=== PATIENT | female | born 1965 | race Caucasian/White ===

== ENCOUNTER 2020-11-01 10:01 | Outpatient (CLI) | payer BC, SELFPAY ==
--- NOTE | 2020-11-01 10:10 | MR_ITS ---
WS: [id number] MRI RIGHT KNEE HISTORY: RT KNEE Pain; hx OF TORN MENISCUS RT KNEE, history of prior meniscal repair. COMPARISON: None available. Anterior cruciate ligament: Intact. Posterior cruciate ligament: Intact. Medial collateral ligament: MCL is being displaced from the joint line by an extruded meniscus, osteo phytes and inflammatory changes. No tear is identified. Posterior lateral corner structures: Displacement of the fibular collateral ligament from the joint l ine by osteophytes and degenerative changes at the joint line. Medial menisci: Mild intrasubstance degeneration. No tear is identified. There is increased vertical signal through the posterior third of the meniscus but this is only seen on one image therefore canno t confirm this is a tear. There is partial extrusion of the meniscus from the joint line. Lateral meniscus: Significant intrasubstance degeneration. There is fraying along the articular surfa jamshid of the anterior and posterior horns. Smudgy-like area of increased signal along the free edge of the anterior horn. There is also some increased fluid surrounding the posterior horn. Extensor mechanism: Distal quadriceps tendon and patellar tendons are intact. Fluid and soft tissue: Moderate-sized joint effusion in the suprapatellar bursa. There is increased s oft tissue edema. Increase fluid in the infrapatellar fat pad and surrounding the femoral condyles. T here is a septated cystic mass near the fibular head inseparable from the popliteus tendon and muscle extending over length of 2.6 cm x 1.2 cm. Osseous and articular structures: Patellofemoral compartment: Mild narrowing of patellofemoral joint space. Complete loss of cartilage over the patellar surfaces. Patellar osteophytes. There is a large lobulated cyst filling a large por tion of the central patella. Medial compartment: Moderate joint space narrowing of the medial compartment with large marginal oste ophytes, complete loss of cartilage. Meniscus is extruded. Marrow edema along the femoral condyle and tibial plateau. Lateral compartment: Mild narrowing of the lateral compartment. There is significant fissuring and th inning of cartilage. Osteophytes from the joint line. No fracture or marrow edema. There is a subchon dral cyst near the central tibial plateau. MR/MR knee RT wo con* [id number] IMPRESSION: 1. Moderate medial compartment internal degeneration with loss of cartilage, j oint space narrowing, osteophytes and meniscal extrusion. 2. Mild patellofemoral and lateral compartment changes of osteoarthritis and d erangement with loss of cartilage and joint space and osteophyte formation. 3. Moderate-sized suprapatellar joint effusion with increased edema in the soft tissues. 4. Septated cystic mass near the fibular head and the popliteus tendon suspici ous for a ganglion.
== END 2020-11-01 10:02 | disposition home or self-care (01) ==
PROVIDERS: PCP Nurse Practitioner Family; Visit Provider Nurse Practitioner Family
DX: Z87.828 Personal history of other (healed) physical injury and trauma (principal); M23.8X1 Other internal derangements of right knee; M25.761 Osteophyte, right knee; M25.461 Effusion, right knee; R60.0 Localized edema
CPT/HCPCS: 73721

== ENCOUNTER 2021-07-25 15:29 | Outpatient (CLI) | payer BC, SELFPAY ==
--- NOTE | 2021-07-25 15:53 | XR_ITS ---
WS: [id number] ABDOMEN SERIES ACUTE Supine and upright views of the abdomen with AP or PA chest CLINICAL INFORMATION: ABDOMINAL PAIN, LEFT LOWER QUADRANT COMPARISON: None. FINDINGS: Heart: Normal cardiac silhouette. Lungs: Lungs are clear. No consolidation or pleural fluid. Bowel gas pattern: Dense constipation right colon. Otherwise normal bowel gas pattern. Free air: None. Abnormal calcifications: None. Bones: Postoperative changes lower cervical spine XR/XR acute abdomen series [id number] IMPRESSION: 1. Both lungs are well aerated. No acute pulmonary infiltrates. 2. Prior cholecystectomy. 3. Dense constipation right colon. 4. No other acute findings.
== END 2021-07-25 15:30 | disposition home or self-care (01) ==
PROVIDERS: PCP Nurse Practitioner Family; Visit Provider Clinical Nurse Specialist Adult Health
DX: R10.32 Left lower quadrant pain (principal); K59.00 Constipation, unspecified; Z90.49 Acquired absence of other specified parts of digestive tract
CPT/HCPCS: 74022

== ENCOUNTER 2024-05-02 09:23 | Emergency (ER) | payer BC, SELFPAY ==
[2024-05-02] VITALS (40 sets, daily range): BP systolic 175–189; BP diastolic 107–128; PULSE 66–83; RESP 9–21; TEMP 36.6; O2SAT 94–99; BMI 32.0
--- NOTE | 2024-05-02 10:46 | ECG_ITS ---
[facility] Test Date: 2024-05-02 Pat Name: Jina Hester Department: Room: Gender: Female Hand Presser: : 1965 Requested By: John Alexander Order Number: [id number] Jane MD: Sushil Taylor M.D. Measurements Intervals [place] Rate: 76 P: 50 [place]: 154 QRS: 23 QRSD: 83 T: 26 QT: 375 QTc: 424 Interpretive Statements SINUS RHYTHM No previous ECG available for comparison Electronically Signed On 05-03-2024 14:45:13 CDT by Sushil Taylor M.D. [id number]
--- NOTE | 2024-05-02 10:46 | XRR_ITS ---
PROCEDURE INFORMATION: Exam: XR Chest Exam date and time: 05/02/2024 10:58 AM Age: 58 years old Clinical indication: Pain; Chest pressure; Additional info: Chest pain TECHNIQUE: Imaging protocol: Radiologic exam of the chest. Views: 1 view. COMPARISON: CR XR acute abdomen series [id number] 07/25/2021 4:03 PM FINDINGS: Lungs: Unremarkable. No consolidation. Pleural spaces: Unremarkable. No pleural effusion. No pneumothorax. Heart/Mediastinum: Unremarkable. No cardiomegaly. Bones/joints: Unremarkable. XR/XR chest 1V portable [id number] IMPRESSION: No acute findings.
--- NOTE | 2024-05-02 11:18 | ED_ITS ---
HPI - Back Pain/Injury 2 General: Chief Complaint: Back Pain/Injury Stated Complaint: neck pain, back pain, dizziness Time Seen by Provider: 05/02/24 10:17 Source: patient Mode of arrival: ambulatory Limitations: no limitations History of Present Illness: Patient is had right upper thoracic back pain going on for a few days, worse yesterday. Took Flexeril but had no improvement. Patient reports that exertion does not necessarily change it. Yesterday when walking out to feed the animals she experienced some back pain that increased as well as some lightheadedness. She had an appointment tomorrow with a clinic for just the back pain but with the sudden bout of lightheadedness and a heavy cardiac history on her father side of the family she went to get checked out. Patient reports the pain is never gone. It does wax and wane. Review of Systems 2 General: Reports: 10 or more systems reviewed and unremarkable except in HPI and below PFSH ED 2 PFSH: Medical History Iron deficiency anemia Rectocele Seasonal allergies Surgical History Hx of appendectomy Hx of cholecystectomy Hx of fusion of cervical spine Hx of hysterectomy Hx of right knee surgery Hx of tonsillectomy Family History Other CAD (coronary artery disease) Diabetes Denies family history of Hyperlipidemia Family history of premature coronary artery disease Hypertension Social History (Updated 04/21/23 @ 14:16 by William Porter NP) Quit status (tobacco/nicotine): has quit using Former quit date comment: 20 pack year history Alcohol intake: current Alcohol intake frequency: holidays/special occasions only Physical Exam 2 Const: COMMON NORMALS: no acute distress, average body habitus, patient oriented x3, healthy appearing, alert and well nourished GENERAL APPEARANCE: well kempt and well developed HENMT: COMMON NORMALS: normocephalic, atraumatic, external ears normal and moist oral mucous membranes HEAD & SCALP: normocephalic and atraumatic E XTERNAL EAR: Yes external ears normal Eye: COMMON NORMALS: Equal, round and reactive pupils present, EOMs intact bilaterally and conjunctivae normal CONJUNCTIVA: Yes conjunctivae normal P UPIL: Yes Equal, round and reactive pupils present Neck/C-Spine: COMMON NORMALS: full ROM, no lymphadenopathy and supple Chest: CHEST: Yes Symmetrical chest wall rise and No Surgical scars present (Chest) Resp: COMMON NORMALS: normal respiratory effort, No retractions, No use of accessory muscles and clear to auscultation bilaterally AUSCULTATION: clear to auscultation bilaterally Cardio: COMMON NORMALS: regular rate, regular rhythm, S1 normal heart sound present, S2 normal heart sound present, No gallops present (Cardio), No clicks present (Cardio), No murmurs present (Cardio) and No rub (Cardio) RATE: r egular rate RHYTHM: regular rhythm HEART SOUNDS: S1 normal heart sound present, S2 normal heart sound present and no murmurs PERIPHERAL PULSES: o ther (Radial pulses 2+ and symmetric) GI: COMMON NORMALS: Soft to palpation, non-tender and no masses INSPECTION: No abdominal distension PALPATION: Yes Soft to palpation, No Guarding due to palpation present (GI) and No Rebound tenderness present : COMMON NORMALS: Yes no CVA tenderness BLADDER/KIDNEY EXAM: Yes no CVA tenderness Back/Pelvis: COMMON NORMALS: no CVA tenderness Extremity: COMMON NORMALS: normal to inspection, full ROM, capillary refill normal and no clubbing, cyanosis or edema Neuro: COMMON NORMALS: patient oriented x3 SENSORIUM/ORIENTATION: Yes alert Psych: APPEARANCE: Yes well kempt Skin: COMMON NORMALS: no rashes or lesions noted, no wounds, turgor normal and no jaundice GENERAL SKIN EXAM: no rashes or lesions noted and turgor normal Course 2 Vital Signs: Vital signs: Vital Signs Temperature 98 F 05/02/24 10:21 Pulse Rate 74 05/02/24 13:15 Respiratory Rate 12 05/02/24 13:15 Blood Pressure 175/107 05/02/24 13:00 Pulse Oximetry 97 05/02/24 13:15 Oxygen Delivery Me thod Room Air 05/02/24 10:21 MDM - Back Pain/Injury Medical Decision Making Thankfully cardiac workup and CT PE protocol are negative. Patient was discharged with prescription for Robaxin. Patient to take it twice daily and can take it 3 times daily if needed. Follow-up with primary care. Medical Records I reviewed the patient's medical records. Labs I reviewed the patient's lab results. 05/02/24 11:16 05/02/24 11:16 Radiology Impressions Chest X-Ray 05/02/24 10:46 IMPRESSION: No acute findings. Laboratory Results WBC 5.16 10^3/uL (3.29-11.43) 05/02/24 11:16 RBC 5.20 10^6/uL (3.85-5.65) 05/02/24 11:16 Hgb 14.20 g/dL (11.27-16.99) 05/02/24 11:16 Hct 44.3 % (36-47) 05/02/24 11:16 MCV 85.2 fl (85-98) 05/02/24 11:16 MCH 27.3 pg (27-33) 05/02/24 11:16 MCHC 32.1 g/dL (30-55) 05/02/24 11:16 RDW 14.0 % (12.1-15.1) 05/02/24 11:16 Plt Count 170 10^3/cmm (157-399) 05/02/24 11:16 MPV 9.8 fL (7.4-10.4) 05/02/24 11:16 Neut % (Auto) 57.0 % 05/02/24 11:16 Lymph % (Auto) 30.4 % 05/02/24 11:16 [place] % (Auto) 5.0 % 05/02/24 11:16 Eos % (Auto) 6.4 % 05/02/24 11:16 Baso % (Auto) 1.0 % 05/02/24 11:16 Neut # (Auto) 2.94 10^3/uL (1.8-7.7) 05/02/24 11:16 Lymph # (Auto) 1.6 10^3/uL (0.8-4.8) 05/02/24 11:16 [place] # (Auto) 0.3 10^3/uL (0.2-0.9) 05/02/24 11:16 Eos # (Auto) 0.3 10^3/uL (0.0-0.8) 05/02/24 11:16 Baso # (Auto) 0.1 10^3/uL (0.0-0.1) 05/02/24 11:16 Nucleated RBC % (auto) 0 % 05/02/24 11:16 Nucleated RBCs # 0.0 /100WBC 05/02/24 11:16 D-Dimer 0.89 ug/mLFEU (0-0.59) H 05/02/24 11:16 Sodium 143 mmol/L (136-145) 05/02/24 11:16 Potassium 4.1 mmol/L (3.5-5.1) 05/02/24 11:16 Chloride 107 mmol/L (98-107) 05/02/24 11:16 Carbon Dioxide 23 mmol/L (22-29) 05/02/24 11:16 Anion Gap 17.1 (5-19) 05/02/24 11:16 BUN 16 mg/dL (8-23) 05/02/24 11:16 Creatinine 0.8 mg/dL (0.5-0.9) 05/02/24 11:16 GFR Calculation 73.2 mL/min (90-130) L 05/02/24 11:16 Glucose 104 mg/dL (65-115) 05/02/24 11:16 Calculated Osmolality 297 mOsm/kg (285-295) H 05/02/24 11:16 Calcium 9.5 mg/dL (8.5-10.5) 05/02/24 11:16 Total Bilirubin 0.4 mg/dL (0.15-1.2) 05/02/24 11:16 AST 16 U/L (0-32) 05/02/24 11:16 ALT 18 U/L (0-33) 05/02/24 11:16 Alkaline Phosphatase 89 U/L (35-105) 05/02/24 11:16 Troponin T Baseline < 6 ng/L (0-10) 05/02/24 11:16 Total Protein 7.6 g/dL (6.6-8.7) 05/02/24 11:16 Albumin 4.4 g/dL (3.5-5.2) 05/02/24 11:16 Globulin 3.2 g/dL (1.3-4.6) 05/02/24 11:16 Lipase 29 U/L (13-60) 05/02/24 11:16 XR interpretation done by ED provider, pending radiology final review ED provider radiology interpretation(s): CT PE study read by me. I see no signs of moderate to large pulmonary embolus. Will follow-up study read however patient will go ahead and be discharged. X- ray of the chest was also reviewed by me and was unremarkable. EKG Data EKG 1: I personally reviewed and interpreted this EKG as follows: EKG interpretation date: 05/02/24 EKG interpretation time: 11:06 Prior EKG tracings: not available for review Interpretation: Normal axis, sinus rhythm, rate of [address] QRS or QTc. ST segments unremarkable. EKG 2: I personally reviewed and interpreted this EKG as follows: EKG interpretation date: 05/02/24 EKG interpretation time: 12:29 Prior EKG tracings: available for review Interpretation: Sinus rhythm normal axis rate of [address] QRS or QTc. No ST elevation or depression. Discharge Plan Discharge Patient Disposition: Home Condition: Stable Prescriptions: New methocarbamol 750 mg tablet 750 mg PO TID PRN (Reason: muscle pain) 10 Days Qty: 30 0RF Rx Instructions: Take BID morning and evening, can take a midday dose as needed No Action loratadine [Allergy Relief (loratadine)] 10 mg tablet 10 mg PO DAILY Qty: 90 3RF montelukast [Singulair] 10 mg tablet 10 mg PO DAILY Qty: 90 3RF fluticasone propionate [Allergy Relief (fluticasone)] 50 mcg/actuation spray,suspension 1 spray intranasal DAILY Qty: 16 11RF Rx Instructions: administer into each nostril Discharge Orders: Discharge ED (Routine); Ordered 05/02/24 Ordered By: John Alexander Referrals: William Porter DIRECTOR OF EDUCATION AND TRAINING [Primary Care Provider] - Discharge Diet: Usual diet Discharge Activity: Resume usual activity Patient Instructions: Back Pain (ED) Activity Restrictions/Additional Instructions: I have written you for a different muscle relaxer called Robaxin or methocarbamol. It is much less sedating than Flexeril/cyclobenzaprine. He can use it twice a day and then if still being bothered can add in a midday dose as well. Thankfully your x-rays, labs and CT scans appear to be normal. Coding Level of Care Code ED General Handling Supervisor for Juan Diego Herman
[2024-05-02 11:28] LABS: Basophils # 0.1 10^3/uL (0.0-0.1); Eosinophils # 0.3 10^3/uL (0.0-0.8); Eosinophils % 6.4 %; Hematocrit 44.3 % (36-47); Lymphocytes # 1.6 10^3/uL (0.8-4.8); Lymphocytes % 30.4 %; Mean Corpuscular HGB Conc 32.1 g/dL (30-55); Mean Corpuscular Hemoglobin 27.3 pg (27-33); Mean Corpuscular Volume 85.2 fl (85-98); Mean Platelet Volume 9.8 fL (7.4-10.4); Monocytes # 0.3 10^3/uL (0.2-0.9); Neutrophils # 2.94 10^3/uL (1.8-7.7); Nucleated Red Blood Cells % 0 %; Platelet Count 170 10^3/cmm (157-399); White Blood Count 5.16 10^3/uL (3.29-11.43)
[2024-05-02 11:44] LABS: D Dimer 0.89 ug/mLFEU (0-0.59)
[2024-05-02 11:48] LABS: Troponin(5th) Baseline < 6 ng/L (0-10)
[2024-05-02 11:49] LABS: Alanine Aminotransferase 18 U/L (0-33); Albumin Level 4.4 g/dL (3.5-5.2); Alkaline Phosphatase 89 U/L (35-105); Anion Gap 17.1 (5-19); Aspartate Amino Transferase 16 U/L (0-32); Blood Urea Nitrogen 16 mg/dL (8-23); Calcium 9.5 mg/dL (8.5-10.5); Carbon Dioxide 23 mmol/L (22-29); Chloride 107 mmol/L (98-107); Globulin 3.2 g/dL (1.3-4.6); Glomerular Filtration Rate 73.2 mL/min (90-130); Glucose 104 mg/dL (65-115); Lipase 29 U/L (13-60); Osmolality Calculated 297 mOsm/kg (285-295); Potassium 4.1 mmol/L (3.5-5.1); Sodium 143 mmol/L (136-145); Total Bilirubin 0.4 mg/dL (0.15-1.2); Total Protein 7.6 g/dL (6.6-8.7)
--- NOTE | 2024-05-02 12:09 | CTR_ITS ---
PROCEDURE INFORMATION: Exam: CTA Chest With Contrast Exam date and time: 05/02/2024 1:03 PM Age: 58 years old Clinical indication: Other: Upper back pain, near syncope, elevated dimer TECHNIQUE: Imaging protocol: Computed tomographic angiography of the chest with contrast. Exam focused on the arteries. 3D rendering (Not supervised by radiologist): MIP and/or 3D reconstructed images were created by the technologist. Radiation optimization: All CT scans at this facility use at least one of these dose optimization techniques: automated exposure control; mA and/or kV adjustment per patient size (includes targeted exams where dose is matched to clinical indication); or iterative reconstruction. Contrast material: [id number]; Contrast volume: 100 ml; Contrast route: INTRAVENOUS (IV); COMPARISON: CR (CHEST, ) 05/02/2024 10:58 AM RADIATION DOSE METRICS: Total DLP (mGy-cm): 362.9 FINDINGS: Pulmonary arteries: Normal. No pulmonary emboli. Aorta: Unremarkable. No aortic aneurysm. No aortic dissection. Lungs: Unremarkable. No consolidation. No masses. Pleural spaces: Unremarkable. No pneumothorax. No pleural effusion. Heart: Negative for right heart strain. No cardiomegaly. No pericardial effusion. Lymph nodes: Unremarkable. No enlarged lymph nodes. Bones/joints: Unremarkable. No acute fracture. Soft tissues: Unremarkable. CT/CT angio chest PE protcl [id number] IMPRESSION: 1. Negative for pulmonary embolism. 2. Negative for right heart strain. 3. Normal thoracic aorta
--- NOTE | 2024-05-02 12:27 | ECG_ITS ---
[facility] Test Date: 2024-05-02 Pat Name: Jina Hester Department: Room: Gender: Female Senior Copywriter: : 1965 Requested By: John Alexander Order Number: [id number] Jane MD: Sushil Taylor M.D. Measurements Intervals [place] Rate: 66 P: 46 DC: 166 QRS: 26 QRSD: 85 T: 13 QT: 383 QTc: 404 Interpretive Statements SINUS RHYTHM NONSPECIFIC T-WAVE ABNORMALITY Compared to ECG 05/02/2024 11:04:14 T-wave abnormality now present Electronically Signed On 05-03-2024 14:48:50 CDT by Sushil Taylor M.D. [id number]
[2024-05-02] MEDS: iohexol 350 mg/mL 500 mL Btl (per mL) IV (13:16)
[2024-05-02] MEDS: methocarbamol 750 mg Tablet PO (14:05)
[2024-05-02 14:06] LABS: Troponin 5 2HR Delta 0.00001 ABS# (0-10)
== END 2024-05-02 14:10 | disposition home or self-care (01) ==
PROVIDERS: Emergency Provider Emergency Medicine; PCP Clinical Nurse Specialist Adult Health
DX: M54.2 Cervicalgia (principal); M54.6 Pain in thoracic spine; R42 Dizziness and giddiness; Z87.891 Personal history of nicotine dependence
CPT/HCPCS: 36415; 71045; 71275; 80053; 83690; 84484; 85025; 85378; 93005; 99285; Q9967

== ENCOUNTER → 2025-06-16 10:18 | Outpatient (BNVA) | payer BC, SELFPAY | PROVIDERS: PCP Family Medicine; Visit Provider Family Medicine | DX: Z00.00 Encounter for general adult medical examination without abnormal findings (principal); R73.09 Other abnormal glucose; E55.9 Vitamin D deficiency, unspecified; Z13.6 Encounter for screening for cardiovascular disorders; Z51.81 Encounter for therapeutic drug level monitoring | CPT/HCPCS: 80053; 80061; 82306; 83036; 85025 ==

== ENCOUNTER 2025-06-22 09:17 | Outpatient (CLI) | payer BC, SELFPAY ==
--- NOTE | 2025-06-22 09:20 | MM_ITS ---
WS: [id number] BILATERAL SCREENING DIGITAL TOMOSYNTHESIS MAMMOGRAM WITH CAD HISTORY: Screening COMPARISON: None available. Bilateral CC and MLO views with tomosynthesis and synthetic mammography submitted. Computer aided detection analyzed. Breast composition: There are scattered areas of fibroglandular density. No suspicious masses, microcalcifications or architectural distortion. No suspicious findings or mass. No distortion. MM/MM scr BI tomosynthesis [id number] IMPRESSION: BI-RADS: 2 - Benign. FOLLOW UP: 1 Year Follow-up
== END 2025-06-22 09:18 | disposition home or self-care (01) ==
PROVIDERS: PCP Family Medicine; Visit Provider Family Medicine
DX: Z12.31 Encounter for screening mammogram for malignant neoplasm of breast (principal); R92.323 Mammographic fibroglandular density, bilateral breasts
CPT/HCPCS: 77063; 77067

== ENCOUNTER 2025-07-19 09:54 | Day surgery (SDC) | payer BC, SELFPAY ==
[2025-07-19 10:02] VITALS: BP 162/104; PULSE 81; RESP 17; TEMP 36.5; O2SAT 97
[2025-07-19 10:04] VITALS: BMI 32.1
--- NOTE | 2025-07-19 10:29 | ANES.PREANE2 ---
Pre-Anesthetic Assessment Height/Weight: Height 5 ft 1 in Weight 170 lb Temp Pulse Resp BP Pulse Ox O2 Del Method 97.7 F 81 17 162/104 97 Room Air 07/19/25 10:02 07/19/25 10:02 07/19/25 10:02 07/19/25 10:02 07/19/25 10:02 07/19/25 10:02 Preop Diagnosis: Screening colonoscopy Operation Date: 07/19/25 11:15 Proposed Procedures p Colonoscopy [id number] G0121 Z12.11(Not Applicable) - Giovanni Garcia MD Was Beta Fish taken within 24 hours: N/A Was Clonidine taken within 24 hours: N/A Last intake: Intake Last Liquid Date 07/18/25 Last Liquid Time 23:00 Last Solid Date 07/17/25 Last Solid Time 21:00 Social No alcohol and No tobacco Exam alert, oriented x 3, clear to auscultation bilaterally and regular rate & rhythm Airway Submandibular: within normal limits Cervical ROM: within normal limits Mallampati: Class II Dentition: full Anesthetic Plan ASA status: 2 Anesthesia: MAC Other: No prior issues with anesthesia N.p.o. since yesterday evening Denies any pulmonary issues States that blood pressure over the last year has been a little bit elevated, no antihypertensives. Preop BP 162/104 METs greater than 4 Plan for MAC anesthesia Medications/Allergies Home Medications ?Medication ?Instructions ?Recorded ?Confirmed ?Last Taken ?Type No Known Home Medications 06/20/25 07/13/25 Unknown History Allergies Allergy/AdvReac Type Severity Reaction Status Date / Time Penicillins AdvReac Intermediate rash Verified 07/13/25 11:20 Current Medications Generic Name Dose Route Start Last Admin Trade Name Freq PRN Reason Stop Dose Admin Sodium Chloride 1,000 mls @ 15 mls/hr 07/19/25 09:55 07/19/25 10:07 Sodium Chloride 0.9% IV 07/20/25 09:54 15 mls/hr .Q24H PRN Administration COLONOSCOPY FLUIDS PFSH Anesthesia Medical History Iron deficiency anemia Rectocele Seasonal allergies Surgical History Hx of tonsillectomy Hx of cholecystectomy Hx of fusion of cervical spine Hx of hysterectomy Unsure if ovaries removed Hx of appendectomy Hx of right knee surgery Knee replacement Family History Father CAD (coronary artery disease) Prediabetes Mother , They were trying to get to the liver but couldn't and something was blocked. No problems noted. 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
--- NOTE | 2025-07-19 11:08 | W.PM.OPSUD ---
Surgery/Procedure H&P Update DATE OF PROCEDURE: July 19, 2025 DATE H&P PERFORMED: 06/20/25 H&P UPDATE INFORMATION: I have reviewed H&P completed within last 30 days, I have examined patient prior to procedure and No changes to prior documentation PREOP DIAGNOSIS: Screening colonoscopy PLANNED PROCEDURE: Operation Date: 07/19/25 11:15 Proposed Procedures p Colonoscopy [id number] G0121 Z12.11(Not Applicable) - Giovanni Garcia MD
--- NOTE | 2025-07-19 11:25 | SUR.OPER ---
cecum time [id number]
[2025-07-19 11:33] VITALS: BP 121/77; PULSE 82; RESP 16; TEMP 36.6; O2SAT 97
[2025-07-19 11:43] VITALS: BP 155/97; PULSE 76; RESP 18; O2SAT 96
--- NOTE | 2025-07-19 12:02 | ANE.PACU2 ---
Inpatient post-anesthesia follow up: Airway intact: Yes Vital signs: Temperature 97.8 F Pulse Rate 76 Respiratory Rate 18 Blood Pressure 155/97 Pulse Oximetry 96 Oxygen Delivery Me thod Room Air Oxygen Flow Rate Fraction of Inspir ed Oxygen Hydration adequate: Yes Nausea and vomiting: No Pain level: 1 Mental status: Baseline
== END 2025-07-19 12:02 | disposition home or self-care (01) ==
PROVIDERS: PCP Family Medicine; Visit Provider Student in an Organized Health Care Education/Training Program
PROC: 0DJD8ZZ Inspection of Lower Intestinal Tract, Via Natural or Artificial Opening Endoscopic (ICD-10-PCS; CPT 45378; principal; 2025-07-19 11:15)
DX: Z12.11 Encounter for screening for malignant neoplasm of colon (principal); K57.30 Diverticulosis of large intestine without perforation or abscess without bleeding; D50.9 Iron deficiency anemia, unspecified; N81.6 Rectocele; Z87.891 Personal history of nicotine dependence
CPT/HCPCS: 45378; J2704; J7030